=== PATIENT | male | born 1990 | race Caucasian/White ===

== ENCOUNTER 2021-02-21 19:36 | Emergency (ER) | payer SELFPAY ==
[2021-02-21] MEDS ORDERED: Lidocaine 1% with EPINEPHrine 1:100,000 20 ML MDV INJECT ONE (21:03)
[2021-02-21] MEDS ORDERED: cefTRIAXone 1 GM Vial IM ONE (21:22)
[2021-02-21 22:04] LABS: BLOOD UREA NITROGEN,BUN 14 mg/dL (7.0-18.0); CHLORIDE,CL 103 mmol/L (98-107); GLUCOSE RANDOM 96 mg/dL (74-106); POTASSIUM,K 3.7 mmol/L (3.5-5.1); SODIUM,NA 139 mmol/L (136-148)
== END 2021-02-21 22:31 | disposition home or self-care (01) ==
LOC: MW.ED 19:36
DX: L03.111 Cellulitis of right axilla (principal); L02.411 Cutaneous abscess of right axilla
CPT/HCPCS: 10060; 36415; 80053; 85025; 96372; 99283; J0696

== ENCOUNTER 2021-02-23 19:39 | Emergency (ER) | payer SELFPAY | END 2021-02-23 21:29 | disposition home or self-care (01) | LOC: MW.ED 19:39 | DX: L03.111 Cellulitis of right axilla (principal); Z53.21 Procedure and treatment not carried out due to patient leaving prior to being seen by health care provider | CPT/HCPCS: 99283 ==